=== PATIENT | female | born 1990 | race African-American/Black ===

== ENCOUNTER 2021-03-06 22:23 | Emergency (ER) | payer MEDICAID ==
[~2021-03-06] VITALS: Ht 170.2 cm; Wt 95.0 kg
[2021-03-06] MEDS ORDERED: ACETAMINOPHEN 325MG TABLET PO ONE (23:00)
[2021-03-06] MEDS ORDERED: TOPUD MT (23:54)
[2021-03-07] MEDS ORDERED: BACITRACIN ZINC OINT UDPKT TOP ONE
[2021-03-07 00:10] VITALS: BP 111/65
== END 2021-03-07 00:20 | disposition home or self-care (01) ==
LOC: ER 22:23
DX: S61.218A Laceration without foreign body of other finger without damage to nail, initial encounter (principal); W25.XXXA Contact with sharp glass, initial encounter; Y93.89 Activity, other specified; Y92.9 Unspecified place or not applicable
CPT/HCPCS: 73130; 99283